=== PATIENT | male | born 1970 | race Hispanic/Latino ===

== ENCOUNTER 2018-08-01 06:36 | Day surgery (SDC) | payer BC ==
[2018-08-01 07:09] VITALS: BMI 26.6
--- NOTE | 2018-08-01 07:21 | CP.SDSHP ---
Same Day Surgery H & P - History Proposed Procedure: Right shoulder arthroscopic rotator cuff repair Pre-Op Diagnosis: Right shoulder rotator cuff repair - Previous Medical/Surgical History Misc: Other (HLD, Gout) Previous Surgical History: Vasectomy, b/l carpal tunnel release - Allergies Allergies: Allergies No Known Allergies Allergy (Verified 08/01/18 06:47) - Current Medications Current Medications: Chantix, - Physical Exam General Appearance: NAD Vital Signs: Vital Signs 08/01/18 08/01/18 07:07 07:13 Temperature 97.7 F Pulse Rate 52 L 52 L Respiratory 18 Rate Blood Pressure 179/99 H O2 Sat by Pulse 97 Oximetry Mental Status: Alert & Oriented x3 Neuro: WNL Heart: WNL Lungs: WNL GI: WNL Social History: Smoking (2 ppd, ETOH daily), Alcohol - {Optional Preform as Required} Abdomen: WNL Integument: WNL Ortho: Other ENT: WNL (R shoulder: limited ROM due to pain, sensation and motor intact MN/UN/RN) - Impression Impression: Patient is a 48 y/o male who presents for elective R shoulder arthroscopy. The patient has had chronic pain hindering his daily activities. He has failed conservative management and has opted for surgery. Ris ks/benefits/alternatives explained to the patient who understands and agrees to proceed with above. [place] [facility] NOCTURNIST PHYSICIAN patient report reviewed, no CDS. Patient counseled on the risks of addiction, physical or psychological dependence, and overdose associated with opiod drugs and the danger of taking opiod drugs with alcohol and other central nervous system depressants, and cautioned patient on storage and disposal. Pt. Evaluated Today:Candidate for Anesthesia & Procedure: Yes - Date & Time Date: 08/01/18 Time: 07:20 Short Stay Discharge - Short Stay Discharge Admitting Diagnosis/Reason for Visit: M75.121/ M19.011/ Disposition: HOME/ ROUTINE Medications: oxyCODONE/Acetaminophen [Percocet 5/325 mg Tab] 1 ea PO Q4 PRN #30 tab PRN Reason: Pain, Severe (8-10)
[2018-08-01] MEDS ORDERED: Lactated Ringer's 1,000 ML IV ONE ×2 (07:44→14:30)
[2018-08-01] MEDS ORDERED: Ropivacaine 0.5% 30ML IV ONE (08:17)
[2018-08-01] MEDS ORDERED: EPINEPHrine 1 mg/ml (1:1000) Inj ONE (08:18)
[2018-08-01] MEDS ORDERED: Propofol 10 mg/ml Inj (20 ML) ONE (08:24)
[2018-08-01] MEDS ORDERED: Midazolam 2 MG/2 ML VIAL ONE (08:25)
[2018-08-01] MEDS ORDERED: Lidocaine 1% 5ml Abboject ONE (08:28)
[2018-08-01] MEDS ORDERED: Lidocaine 1% Inj (20ml) ONE (08:34)
[2018-08-01] MEDS ORDERED: Bacitracin Ointment 30 GM TUBE ONE (09:53)
[2018-08-01] MEDS ORDERED: Oxycodone/Acetaminophen 5/325 mg Tab PO PRN ×2 (09:56)
[2018-08-01] MEDS ORDERED: EPINEPHrine 1 mg/ml (1:1000) Inj IV ONE (09:58)
[2018-08-01] MEDS ORDERED: Bacitracin OINT 15GM TOP ONE (11:08)
--- NOTE | 2018-08-01 11:27 | CARD ---
APPROVED REPORT Date of service: 08/01/2018 EKG Measurement Heart [id number] [id number] <Conclusion> Sinus bradycardia Possible septal infarct, age undetermined Abnormal ECG
[2018-08-01] MEDS ORDERED: Bupivacaine 0.5% Inj(30mL) ONE (12:10)
[2018-08-01] MEDS ORDERED: MethylPREDNISolone Depo 40 mg/ml Inj ONE (12:10)
[2018-08-01] MEDS ORDERED: Bupivacaine 0.5% 50 ML IJ ONE (12:30)
[2018-08-01] MEDS ORDERED: MethylPREDNISolone Depo 40 mg/ml Inj IM ONE (12:30)
[2018-08-01] MEDS ORDERED: HYDROmorphone 0.5 mg/0.5 ml ISec IVP PRN (12:55)
--- NOTE | 2018-08-01 12:59 | PCM.ANESB1 ---
Interscalene Block - Brachial Plexus Date of Procedure: 08/01/18 Anesthesiologist: Albaro Pre-Procedure Diagnosis: right shoulder internal derangement Procedure Performed: Interscalene Block of Brachial Plexus Right - Procedure Interscalene Block of Brachial Plexus: This procedure was explained to the patient that it is for post-operative pain management. Consent was obtained after a thorough discussion with the patient regarding the benefits and possible complications of local anesthetic block of the Brachial Plexus at the Interscalene area. The patient was brought to the Operating Room and standard monitors were applied. Time out was held with the circulating nurse to confirm the correct surgery and appropriate block. After applying Oxygen by nasal cannula and administering IV Sedation, the patient's head was gently rotated away from the _right operative shoulder and the anterior scalene groove was carefully palpated. The ultrasound transducer was then applied to the skin in the transverse plane and the brachial plexus was visualized lateral to the carotid artery and in between the anterior and middle scalene muscles. After identification,the anterior lateral portion of the neck was prepped with Betadine solution three times and Lidocaine 1% was injected subcutaneously for topical analgesia. At this point, a # 22 gauge Stimuplex 2 inches insulated needle was inserted into the interscalene groove and directed in a caudal and midline direction. The needle was inserted lateral to the ultrasound transducer in-plane towards the brachial plexus in a [id number] direction. Needle advancement was performed carefully under direct ultrasound visualization. Nerve stimulator was used and twitched of the affected extremity including the hand brachialis muscles, biceps and the deltoid was obtained at a current of __0.4___MA. After repeated negative aspiration,__30___cc of_0.5__%__,___ropivicaine were injected and this was followed with cc of % . Under ultrasound guidance the local anesthetics were observed surrounding the roots of the brachial plexus. The needle was removed intact and sterile dressing was applied. The patient had stable vital signs, was conscious and in no apparent distress. The patient tolerated the interscalene block of the bracheal plexus well with stable vital signs and was prepared for subsequent surgery.
--- NOTE | 2018-08-01 13:52 | PCM.SURG1 ---
Surgeon's Initial Post Op Note - Surgeon's Notes Surgeon: Lata Doctor Of Pharmacy: [facility] Type of Anesthesia: General Endo Anesthesia Administered By: DR Irvin Pre-Operative Diagnosis: Rotator cuff tear R shoulder Operative Findings: rotator cuff tear R shoulder. avulsion/attenuation biceps tendon anchor. glenoid labral tear anterior - posterior to biceps tendon root. synvoitis chondral damage glenohumeral joint. synvoitis/adhesions subacromial space. acromiclavicualr joint arthropathy Post-Operative Diagnosis: as above Operation Performed: primary repair Grade3 rotator cufftear. primary intraarticular biceps tenodesisi. primary repair slap lesion. arthroscopic partial distal claviculectomy. arthroscopic debfridment glenohumeral jopint. arthroscopic debridement subacromial space/lysis of adhesions Specimen/Specimens Removed: synvium/cartilage/bone Estimated Blood Loss: EBL {In ML}: 25 Blood Products Given: N/A Drains Used: No Drains Post-Op Condition: Fair Date of Surgery/Procedure: 08/01/18 Time of Surgery/Procedure: 10:00 (time in room/anaesthesia indcution time 8:40)
[2018-08-01 14:54] VITALS: O2SAT 98
[2018-08-01 15:26] VITALS: BP 168/94; PULSE 98; RESP 18; TEMP 98.1
--- NOTE | 2018-08-03 16:27 | OP ---
PROCEDURE DATE: 08/01/2018 PREOPERATIVE DIAGNOSIS: Rotator cuff tear, right shoulder. POSTOPERATIVE DIAGNOSES: 1. Grade 3 tear of the right rotator cuff with retraction involving the subscapularis tendon as well. 2. Avulsion attenuation of the biceps tendon anchor. 3. Glenoid labral tear extending anterior to posterior to the root of the biceps tendon. 4. Synovitis, chondral damage of the glenohumeral joint. 5. Synovitis and adhesions in the subacromial space. 6. Acromioclavicular joint arthropathy. OPERATIVE FINDINGS: 1. Grade 3 rotator cuff tear of right shoulder with retraction. 2. Avulsion attenuation of the biceps tendon anchor. 3. Glenoid labral tear anterior to posterior to the root of the biceps tendon. 4. Synovitis with chondral damage of the glenohumeral joint. 5. Synovitis and adhesions in the subacromial space. 6. Acromioclavicular joint arthropathy. OPERATION PERFORMED: 1. Primary repair, grade 3 rotator cuff tear. 2. Primary intra-articular biceps tenodesis. 3. Primary repair of the superior aspect of the glenoid labrum lesion. 4. Arthroscopic partial distal claviculectomy. 5. Arthroscopic debridement of the glenohumeral joint. 6. Arthroscopic debridement of subacromial space with lysis of adhesions. 7. Partial acromioplasty. SURGEON: Randall Guido MD DIRECTOR OF VOCATIONAL GUIDANCE: Tianna Thornton, certified registered nursing first aid instructor. ANESTHESIA: General endotracheal anesthesia. ANESTHESIA ADMINISTERED BY: Jamarcus Irvin MD SPECIMENS REMOVED: Synovium, cartilage, bone, and bursa. BLOOD LOSS: 20 mL. BLOOD PRODUCTS GIVEN: None. DRAINS: No drains. POSTOPERATIVE CONDITION: Fair. TIME OF SURGERY: Incision time 10:00 a.m. Time in the room, anesthesia induction time 08:40. 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 The patient has had multiple opinions. Now, he can no longer withstand the pain, he cannot swing a hammer, and he has activities which significantly interfere with his activities of daily living. Pros, cons, risks, and benefits of surgical approach were discussed. The possibility of mechanical failure, infection, possibility of re-rupture, possibility of thromboembolic disease, possibility of later secondary or tertiary surgery was discussed. The patient can no longer withstand the discomfort and wished the surgery to be accomplished. The patient is fully aware of the pros, cons, risks, and benefits. After having obtained informed consent in the above fashion, after having identified the side, site and procedure and a critical pause/time-out, after satisfactory induction of general endotracheal anesthesia by Dr. Jamarcus Irvin, the patient identified as Horace Broussard was placed in the modified fischer chair position. All bony prominences were well padded. The head was centralized and the right upper extremity was placed in the shoulder positioner. OPERATIVE PROCEDURE: After having obtained informed consent in the above fashion, after having identified the side, site and procedure and critical pause/time-out, after the satisfactory induction of the anesthetic, the patient was identified as Horace Broussard in the supine modified fischer chair position. The right upper extremity was placed in the shoulder positioner after sterilely prepping and draping. After sterilely prepping and draping, after the satisfactory induction of the anesthetic, after ensuring muscular relaxation, after having identified the side, site and procedure, and critical pause/time-out, the patient identified as Horace Broussard. After sterilely prepping and draping, the operation commences. The topographic anatomy of the shoulder was marked, the spine of scapula, lateral aspect of the acromion, anterior aspect of the shoulder in the area of the coracoid process. At a point one thumbs breadth inferior to the lateral aspect of the acromion and one thumbs breadth medial, the joint space was introduced with 10 mL of 1% lidocaine without epinephrine. Using #11 blade, followed by spreading, followed by introduction of blunt trocar, the arthroscope was introduced. With the arthroscope introduced posteriorly, examination the joint commences. Triangulation was accomplished using #18-gauge spinal needle, followed by #11 blade, followed by spreading, followed by introduction of blunt trocar. With the arthroscope posteriorly, the Wissinger jaswant was placed anteriorly, taking great care to staying lateral to the coracoid process. The cannula was placed anteriorly with the arthroscope posteriorly, there was found to be an extensive amount of synovitis and intra-articular damage, this chondral damage to the glenoid and a great deal of synovitis. With the arthroscope posteriorly, extensive debridement of the glenohumeral joint was accomplished. There was found to be an extensive labral tear with detachment extending anterior to posterior to the root of the biceps tendon. The biceps tendon anchor was detached. It should be noted that the MRI examination was reviewed by me personally and also the report was reviewed by me personally and I significantly defer with the report. The avulsion of the biceps tendon root was missed as with the extensive glenoid labral tear. It should be noted that the reading was discussed with Radiology during the course of the procedure. With the arthroscope posteriorly, after having accomplished an extensive debridement of the glenohumeral joint including synovectomy, there was found be an extensive amount of exuberant synovitis. The glenoid labral tear of the inner free edge was smoothed and freshened using the arthroscopic shaver. This having been accomplished, the anterior aspect of the glenoid extending from approximately the 12 o'clock to 3 o'clock position was roughened to accept the repair using a combination of 3.4 mm CITTIOs suction punch and the arthroscopic rasp. This having been accomplished with the arthroscope posteriorly, extensive debridement of the glenohumeral joint was accomplished. With the arthroscope posteriorly an extensive synovectomy was accomplished. At this point in time, preparation was made for the repair. A posterolateral portal was accomplished using #18-gauge spinal needle, followed by #11 blade, followed by spreading. This was to be used for the posterior aspect to ensure a very firm and robust biceps tenodesis. With the arthroscope posteriorly, extensive debridement of the glenohumeral joint was accomplished. With the lasso anteriorly extending from the 12 o'clock to the 03:30 position, the first lasso was placed at 1 o'clock, the lasso was placed around the labral tear. The nitinol wire was introduced into the joint and was retrieved using a . At this point in time, the luggage tag suture was brought out anteriorly. The luggage tag was placed around the labrum. Please refer to the video photographs. Drilling was accomplished. The obturator was used to find the hole. The anchor was loaded and the anchor was introduced. With the arthroscope posteriorly, the anchor was introduced and attention was turned to the 2 and 3 o'clock positions, nitinol wire was placed inferior to this and the exact same procedure was accomplished. Further biceps tendon anchor was introduced using the PushLock technique. At the 12:30 position, the labral tear was again ensnared using the lasso device. The nitinol wire was brought out anteriorly. The luggage tag suture was brought out anteriorly. Drilling was accomplished and the PushLock anchor was brought out and introduced, and the fixation was found to be acceptable. Please refer to the video photographs. Using the lasso at the base of the avulsed biceps tendon, intra-articular biceps tenodesis was accomplished. The lasso was placed through the base of the biceps tendon and through the base of the biceps tendon anchor. The lasso was brought out anteriorly. The luggage tag was placed and was brought out anteriorly. At this point in time with the arthroscope posteriorly through the posterolateral portal, the posterior Arthrex instrumentation was accomplished to place the cannula posteriorly. With the arthroscope now posteriorly with the cannula posterolaterally, the second cannula posterolaterally. After period of time, approximately 20 minutes, it was extremely difficult to accomplish. The luggage tag suture was brought out posteriorly. At this point in time, drilling having been accomplished at approximately the 11 o'clock position posteriorly, the anchor was loaded and it was deployed. At this point in time, a very secure biceps tenodesis was accomplished posteriorly. At this point in time, further debridement of the glenohumeral joint was accomplished. Using a combination of 3.4 mm Dyonics suction punch, the chondroplasty was accomplished and the arthroscopic shaver was accomplished as well of the debridement of glenohumeral joint chondroplasty and partial synovectomy. At this point in time, having successfully achieved the labral repair and the intra-articular biceps tenodesis and thorough debridement of glenohumeral joint, the arm was placed in dependency in the shoulder positioner. The table was minimally airplaned to the left position. Great care was taken to identify and secure the fact that all bony prominences were well-padded and this having been accomplished with the arthroscope posteriorly, the arthroscope was removed from the intra-articular position and moved into the subacromial position. The fourth and fifth portals were accomplished using #18-gauge spinal needle, the so-called mid lateral port of Milroy approach was accomplished using #18-gauge spinal needle, followed by #11 blade, followed by spreading. This having been accomplished with the arthroscope in the subacromial space, there was found to be extremely dense synovitis and massive bursitis and adhesions. 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 With the arthroscope posteriorly using a combination of the arthroscopic wand and the arthroscopic shaver, an extensive debridement of the subacromial space with bursectomy was accomplished, an extensive bursectomy was accomplished. Hemostasis was controlled with the arthroscopic wand. Extensive bursectomy and lysis of adhesions was accomplished. With the arthroscope posteriorly, with the upper extremity now on some abduction and mild internal rotation, the Codman's critical area was identified and this was debrided using the arthroscopic shaver. The rotator cuff was avulsed, has retracted posteriorly and a portion of the subscapularis was avulsed as well. With the arthroscope posteriorly, using a rotator cuff grasper the rotator cuff was grasped and was mobilized with the arm and some abduction and internal rotation. Complete coverage of the humeral head was obtained, which was very satisfied. The rotator cuff had been released with a periosteum elevator to mobilize the rotator cuff. Extensive bursectomy and lysis of adhesions having been accomplished, the superior portal was used to introduce the anchors. This having been accomplished using the scorpion, the FiberTape was brought out laterally. This was extending from anterior to posteriorly and three separate FiberTapes were placed and brought out laterally. At this point in time, using a , they were brought out superiorly and at this point in time with the arm in abduction and internal rotation with the humeral head covered after having prepared the critical zone of Codman, the biceps tendon stretch at the anchor was loaded and the anchor was introduced. The SwiveLock anchor was introduced and with abduction and internal rotation, this was tightened and secured. The device was removed. The excess FiberTape was removed and the coverage was found to be acceptable. The same was accomplished with the more posterior FiberTape suture, so two additional anchors were introduced and the position was found to be acceptable. There was complete coverage of the humeral head and when the shoulder was brought down to the side, there was complete coverage of the humeral head. At this point in time, further extensive debridement of the subacromial space was accomplished because of the exuberant synovitis and bursitis. At this point in time with the arthroscope mid laterally, using the anterior portal using #18-gauge spinal needle, followed by #11 blade, followed by spreading, the acromioclavicular joint was identified. At this point in time, the arthroscope was placed posteriorly, the arthroscopic bur was placed mid laterally and a partial acromioplasty was accomplished. The patient has a defined acromial spur. Partial acromioplasty having been accomplished, the arthroscope was now placed mid laterally and at this point in time, using the arthroscopic wand, the joint capsule was carefully debrided. The joint capsule was developed with the arthroscope mid laterally. With the arthroscope mid laterally, the joint capsule was carefully debrided and this having been accomplished, the partial distal claviculectomy was accomplished using arthroscopic shaver and the arthroscopic bur. With the arthroscope mid laterally, a partial distal claviculectomy was accomplished with the arthroscopic bur at the distal 1 cm of the clavicle. The distal 1 cm of the clavicle was debrided using arthroscopic bur and using the arthroscopic wand, hemostasis was controlled. With the arthroscope mid laterally and arthroscopic wand was controlled, partial distal claviculectomy was accomplished, extensive debridement of the glenohumeral joint was accomplished, extensive debridement of the subacromial space having been accomplished, a partial distal claviculectomy was accomplished, the capsule was debrided using the 5.2 mm CITTIOs suction punch. A portion of the distal clavicle was left superiorly for stability. With the partial distal claviculectomy accomplished proximally the distal 1 cm of the joint to include the articular surface. The wounds were thoroughly irrigated. Closures in layers with interrupted Vicryl and nylon. Intra-articular injection of Depo-Medrol was accomplished because of the extreme inflammation. General endotracheal and scalene block anesthesia had been accomplished by Dr. Irvin. A compression dressing and shoulder abduction splint was applied. Randall Guido MD
== END 2018-08-01 15:41 | disposition home or self-care (01) ==
LOC: H.OPSURG 06:36
PROVIDERS: ATTEND Orthopaedic Surgery
DX: M75.101 Unspecified rotator cuff tear or rupture of right shoulder, not specified as traumatic (principal); S46.291A Other injury of muscle, fascia and tendon of other parts of biceps, right arm, initial encounter; M12.811 Other specific arthropathies, not elsewhere classified, right shoulder; M65.811 Other synovitis and tenosynovitis, right shoulder
CPT/HCPCS: 29823; 29824; 29825; 29826; 29827; 29828; 88304; 88305; 88311; 93005; C1713; J0171; J0690; J1030; J2250; J2405; J2704; J3010; J7030; J7120